=== PATIENT | female | born 1995 | race Two or more races ===

== ENCOUNTER → 2023-05-18 | Outpatient (CLI) | payer OTHER, SELFPAY | LOC: M RAD 13:42 | PROVIDERS: ATTEND Advanced Practice Midwife | DX: Z36.89 Encounter for other specified antenatal screening (principal); Z3A.19 19 weeks gestation of pregnancy ==

== ENCOUNTER → 2023-06-15 | Outpatient (CLI) | payer OTHER | LOC: M WHC 14:48 | PROVIDERS: ATTEND Obstetrics & Gynecology | DX: O28.3 Abnormal ultrasonic finding on antenatal screening of mother (principal); Z3A.24 24 weeks gestation of pregnancy ==